=== PATIENT | male | born 1975 | race Caucasian/White ===

== ENCOUNTER 2021-09-02 22:31 | Emergency (ER) | payer OTHER ==
[2021-09-02 23:20] LABS: BASOPHIL 0.7 % (0-2); EOSINOPHIL 2.2 % (0-5); HCT 42.3 % (42.0-52.0); HGB 14.4 g/dl (13.2-18.0); LYMPHOCYTE 34.3 % (15-48); MCH 31.4 pg (25.0-31.0); MCV 92.4 fL (78.0-100.0); MONOCYTE 8.1 % (0-12); MPV 12.2 fL (6.0-9.5); NEUTROPHIL 54.6 % (41-80); NRBC 0; RBC 4.58 M/uL (4.70-6.00); RDW 12.1 % (11.5-14.0); WBC 9.1 K/uL (4.0-10.5)
[2021-09-02 23:24] LABS: INR 1.02 (0.9-1.2); PROTHROMBIN TIME 12.8 SECONDS (11.8-13.4)
[2021-09-02 23:29] LABS: ALBUMIN 3.8 g/dL (3.4-5.0); BILIRUBIN - TOTAL 0.4 mg/dL (0.2-1.0); BUN/CREAT RATIO (CALC) 11.8 RATIO; CREATININE 1.19 mg/dL (0.67-1.17); GLOBULIN (CALCULATION) 3.7 g/dL; POTASSIUM 4.2 mmol/L (3.5-5.1); TOTAL PROTEIN 7.5 g/dL (6.4-8.2)
[2021-09-02 23:43] LABS: PLT 172 K/uL (150-400)
[2021-09-03] MEDS ORDERED: MOBIC15 MG PO (01:53)
== END 2021-09-03 02:04 | disposition home or self-care (01) ==
LOC: FER 22:31
PROVIDERS: Internal Medicine
DX: M54.2 Cervicalgia (principal); M54.6 Pain in thoracic spine; F17.210 Nicotine dependence, cigarettes, uncomplicated; Z88.0 Allergy status to penicillin; V40.5XXA Car driver injured in collision with pedestrian or animal in traffic accident, initial encounter; Y92.410 Unspecified street and highway as the place of occurrence of the external cause
CPT/HCPCS: 36415; 70450; 71275; 72125; 72128; 72131; 80053; 85025; 85610; J7030; Q9967